=== PATIENT | female | born 1995 | race Caucasian/White ===

== ENCOUNTER 2018-11-08 06:42 | Inpatient (IN) | payer OTHER, SELFPAY ==
[2018-11-08 06:50] VITALS: BMI 33.1
[2018-11-08] MEDS: Lactated Ringers 1,000 ML 50 ML IV ×3 (07:40→20:28)
[2018-11-08] MEDS: Oxytocin 30 units/NS 500 ml 30 UNITS/500 ML IV.SOLN IV (07:55)
[2018-11-08 08:44] LABS: Hematocrit 36.3 % (37-47); Hemoglobin 11.9 g/dl (12.0-15.0); Mean Corp Hgb Conc 32.8 g/gl (32-36); Mean Corpuscular Volume 91.4 fL (81-99); Mean Platelet Vol. 10.9 fl (6.2-12.0); Platelet Count 252 K/mm3 (150-450); RBC Distribution Width CV 13.9 % (11.6-14.6); Red Blood Count 3.97 M/mm3 (4.2-5.4); White Blood Count 9.7 K/mm3 (4.4-11.0)
[2018-11-08 08:48] LABS: Scan Indicated on CBC? Y/N NO
--- NOTE | 2018-11-08 10:48 | PCM.HP.OB ---
History Date of Admission: 11/08/18 Final NEO: 10/31/18 Gestational age: 41 Weeks and 1 Days History of this : This is a 23 year-old, 1 para 0 female admitted at 41-1/7 weeks gestation for induction of labor. Fractions. She is a good movement. Her has been uncomplicated to date. Allergies No Known Allergies Allergy (Verified 11/08/18 08:00) Home Medications: Home Medications Vits [Prenatabs FA] 1 tablet PO DAILY 11/08/18 Smoking Status: Never smoker Alcohol: None Number of Fetus(es): 1 Heart Tracin bpm, occas variables, moderate variability, some accels TOCO Analysis: mild ctxs q3 min History Past Pregnancies: Past Pregnancies Delivery Date Name GA/Weeks Outcome Route Weight Infant Gender Labor Length Anesthesia Delivery Location Provider FOB Review of Systems Constitutional: Denies: Chills, Fever Cardiovascular: Denies: Chest Pain Respiratory: Denies: Cough Gastrointestinal: Denies: Abdominal Pain Genitourinary: Denies: Dysuria Skin: Denies: Rash Neurological: Denies: Blurred vision, Slurred speech Physical Exam General: Alert, Cooperative, No apparent distress Cardiovascular: Regular rate Lungs: Normal air movement Abdomen: Soft, Non Tender, Non-Distended, Appropriate for Gestational Age Extremities:: Other - edema1+ PAD TUFTER: Normal external genitalia Estimated gestational size: Appropriate for gestational size Presentation: Cephalic Cervix Dilation (cm): 2.5 Station: -2 Effacement (%): 70 Assessment/Plan This is a 23 year-old, 1 para 0 at 41-1/7 weeks gestation for induction of labor due to being 41 weeks. Response and alternatives to induction of labor had been discussed with patient, her questions were answered to her satisfaction she desires to proceed. Proceed with Pitocin and artificial rupture membranes. May have epidural, nitrous oxide or Nubain as needed for pain control..
--- NOTE | 2018-11-08 10:52 | HP.PCM_ITS ---
History Date of Admission: 11/08/18 Final NEO: 10/31/18 Gestational age: 41 Weeks and 1 Days History of this : This is a 23 year-old, 1 para 0 female admitted at 41-1/7 weeks gestation for induction of labor. Fractions. She is a good movement. H er has been uncomplicated to date. Allergies No Known Allergies Allergy (Verified 11/08/18 08:00) Home Medications: Home Medications Vits [Prenatabs FA] 1 tablet PO DAILY 11/08/18 Smoking Status: Never smoker Alcohol: None Number of Fetus(es): 1 Heart Tracin bpm, occas variables, moderate variability, some accels TOCO Analysis: mild ctxs q3 min History Past Pregnancies: Past Pregnancies Delivery Date Name GA/Weeks Outcome Route Weight Gender Labor Length Anesthesia Delivery Location Provider FOB Review of Systems Constitutional: Denies: Chills, Fever Cardiovascular: Denies: Chest Pain Respiratory: Denies: Cough Gastrointestinal: Denies: Abdominal Pain Genitourinary: Denies: Dysuria Skin: Denies: Rash Neurological: Denies: Blurred vision, Slurred speech Physical Exam General: Alert, Cooperative, No apparent distress Cardiovascular: Regular rate Lungs: Normal air movement Abdomen: Soft, Non Tender, Non-Distended, Appropriate for Gestational Age Extremities:: Other - edema1+ [employer]: Normal external genitalia Estimated gestational size: Appropriate for gestational size Presentation: Cephalic Cervix Dilation (cm): 2.5 Station: -2 Effacement (%): 70 Assessment/Plan This is a 23 year-old, 1 para 0 at 41-1/7 weeks gestation for induction of labor due to being 41 weeks. Response and alternatives to induction of labor had been discussed with patient, her questions were answered to her satisfaction she desires to proceed. Proceed with Pitocin and artificial rupture membranes. May have epidural, nitrous oxide or Nubain as needed for pain control..
--- NOTE | 2018-11-08 10:59 | PN.OBGYN_ITS ---
Subjective: Well controlled, average lochia, working on breast-feeding. - Physical Exam General: Alert, Cooperative, No apparent distress Weight: 77 kg Body Mass Index (BMI) 33.1 Laboratory Tests Past 24 Hrs 11/08/18 11/08/18 07:40 07:40 WBC 9.7 RBC 3.97 L Hgb 11.9 L Hct 36.3 L MCV 91.4 MCH 30.0 MCHC 32.8 RDW 13.9 RDW Differential 46.0 H Plt Count 252 MPV 10.9 Blood Type Pending Antibody Screen Pending Medical Necessity - Tobacco Use Smoking Status: Never smoker Assessment/Plan day #1 status post spontaneous vaginal delivery. Patient is breast- feeding and doing well. Teen care for her in the . Likely discharge home tomorrow.
--- NOTE | 2018-11-08 11:02 | DCINST_ITS ---
Discharge Diet: No Restrictions Discharge Activity: Return to Normal Activity, May not drive while taking narcotic pain medications., May Shower May resume sexual activity in: 4-6 weeks Additional Activity Instructions:: Nothing in the vagina for 4-6 weeks. You may return to work/school in 6 weeks. Call your doctor if your incision/area has: Continuous Slow Oozing, Sudden Increased Bleeding, Increased Pain/ Swelling, Increased Redness, Foul Smelling Discharge Additional Instructions: If you experience any of the following, contact your healthcare provider. * Bleeding that soaks a pad every hour for 2 hours * Fever 100.4 or higher * Unrelieved incision or abdominal pain * Swelling, redness, discharge or bleeding from your incision or episiotomy site * Your incision begins to separate * Problems urinating (including inability to urinate or burning while urinating). * Visual changes * Severe headache * Flu-like symptoms * Pain or redness in one of both of your breasts * Pain, warmth, tenderness or swelling in your legs, especially the calf area * Frequent nausea and vomiting * Symptoms of depression or anxiety If you experience any of the following, call 911 or go to the nearest Emergency Room. * Chest pain * Problems breathing * Seizure activity * Partial or complete paralysis of a body part, slurred speech, weakness or drooping of the face, or a sudden inability to walk or hold your balance Allergies/Adverse Reactions: Allergies No Known Allergies Allergy (Verified 11/08/18 08:00) Medications to take at Discharge Ibuprofen [Motrin] 800 mg PO TID PRN PRN #60 tablet 11/08/18 Vits [Prenatabs FA ] 1 tablet PO DAILY 11/08/18 The following prescriptions were given: Ibuprofen [Motrin] 800 mg PO TID PRN PRN #60 tablet PRN Reason: Pain Please Follow Up With: Loretta Huffman MD - [phone] When: Call to make an appointment with your provider's office in 6 weeks. Make an appointment in 1-2 weeks as well. Primary Care Physician: Care Physician,No Primary [Primary Care Provider] - Test Results: Test results from this visit will be discussed in further detail at your follow- up appointment, if applicable. Proposed Discharge Date: 11/09/18
--- NOTE | 2018-11-08 11:03 | PCM.HP.OB ---
History Date of Admission: 11/08/18 Final NEO: 10/31/18 Gestational age: 41 Weeks and 1 Days Allergies No Known Allergies Allergy (Verified 11/08/18 08:00) Home Medications: Home Medications Ibuprofen [Motrin] 800 mg PO TID PRN PRN #60 tablet 11/08/18 Vits [Prenatabs FA ] 1 tablet PO DAILY 11/08/18 Smoking Status: Never smoker Alcohol: None History Past Pregnancies: Past Pregnancies Delivery Date Name GA/Weeks Outcome Route Weight Gender Labor Length Anesthesia Delivery Location Provider FOB Assessment/Plan disregard this duplicate entry
[2018-11-08] MEDS: Mag Hydrox/Al Hydrox/Simeth 30 ML UDC PO (14:03)
[2018-11-08] MEDS: Nalbuphine 10 MG/ML Ampul IV (14:06)
[2018-11-08] MEDS: fentaNYL-bupivacaine (epidural) 100 ML BAG EPIDURAL ×2 (15:20→20:40)
[2018-11-08] MEDS: Ondansetron 4 MG/2 ML Vial IV (21:00)
[2018-11-08] MEDS: Oxytocin 30 units/NS 500 ml 30 UNITS/500 ML IV.SOLN 334 UNITS IV (21:37)
[2018-11-08] MEDS: Oxytocin 30 units/NS 500 ml 30 UNITS/500 ML IV.SOLN 167 UNITS IV (22:07)
--- NOTE | 2018-11-08 22:20 | PCM.OB.VAG ---
Vaginal Delivery Maternal Presentation: Medically Indicated Induction Method of Induction: Pitocin, Amniotomy Medical Reason for Induction: - - 41 weeks Amniotic Membrane Rupture Type: Artificial Amniotic Fluid Description: Clear Final NEO: 10/31/18 Gestational age: 41 Weeks and 1 Days Date of Procedure: 11/08/18 Pre-Operative Diagnosis: Labor, maternal exhaustion Post-Operative Diagnosis: Same Surgery/ Procedure Performed: Vacuum Assisted Vaginal Delivery - Outlet Type of Anesthesia: Epidural Description of Procedure: Patient was complete and pushing. She was comfortable with her epidural. Stein catheter is in place. Position was EVER. Patient had been pushing for 2-1/2 hours with good effort. At times she was pushing every other contraction because of variable decelerations and prolonged decelerations. Then she would have times of minimal variability. She was becoming fatigued. There was mild It. With pushing the station was plus 4 out of 5 station and labia approximately 2 cm. I discussed with her option of trial of vacuum-assisted vaginal delivery versus continuing second stage. [place] it was reasonable given how long the patient had been pushing and the progress she made to attempt a vacuum at this point. Patient and her partner agreed. The vacuum was placed on the flexion point and vacuum was created to 550 mmHg. I pulled with 2 contractions until the head was almost . On the third contraction of the head was the vacuum suction broke and there is a gentle pop off. She then pushed with another contraction and delivered the baby EVER. The shoulders were delivered in less than 30 seconds with maternal pushing efforts and modified Edi position and minimal downward traction. The remainder the delivered quickly and easily. The was placed on the maternal abdomen was attended to by the waiting nursing staff. Cord clamping was delayed. The cord was clamped and cut and the continued to be attended to by the nursing staff. Cord gases were collected and the placenta was delivered with gentle cord traction and fundal massage. The right vaginal sulcus laceration and perineal body were reapproximated with 2-0 Vicryl suture. The remainder the vaginal laceration and second-degree perineal laceration were reapproximated with 3-0 Vicryl Rapide suture. A rectal exam was done before the laceration was repaired and at the end of the repair. The cervix was intact. Sponge and needle counts were correct. The patient and the tolerated the procedure well. Presentation: EVER Placental Delivery Description: Spontaneous Placenta Disposition: [facility] Cord Vessel Description: 3 Vessels Cord Gases drawn per routine: ABG, VBG Cord Entanglement: None Drain: Stein to straight drain Estimated Blood Loss: 500 A gender: Female (1 minute): 8 (5 minute): 9 Laceration: Vaginal Extension/lac - Right vaginal sulcus laceration, 2nd degree - Perineal Medications given after delivery: IV Pitocin Complications: None
--- NOTE | 2018-11-08 22:27 | OP.PCM_ITS ---
Vaginal Delivery Maternal Presentation: Medically Indicated Induction Method of Induction: Pitocin, Amniotomy Medical Reason for Induction: - - 41 weeks Amniotic Membrane Rupture Type: Artificial Amniotic Fluid Description: Clear Final NEO: 10/31/18 Gestational age: 41 Weeks and 1 Days Date of Procedure: 11/08/18 Pre-Operative Diagnosis: Labor, maternal exhaustion Post-Operative Diagnosis: Same Surgery/ Procedure Performed: Vacuum Assisted Vaginal Delivery - Outlet Type of Anesthesia: Epidural Description of Procedure: Patient was complete and pushing. She was comfortable with her epidural. Stein catheter is in place. Position was EVER. Patient had been pushing for 2-1/2 hours with good effort. At times she was pushing every other contraction because of variable decelerations and prolonged decelerations. Then she would have times of minimal variability. She was becoming fatigued. There was mild It. With pushing the station was plus 4 out of 5 station and labia approximately 2 cm. I discussed with her option of trial of vacuum- assisted vaginal delivery versus continuing second stage. [place] it was reasonable given how long the patient had been pushing and the progress she made to attempt a vacuum at this point. Patient and her partner agreed. The vacuum was placed on the flexion point and vacuum was created to 550 mmHg. I pulled with 2 contractions until the head was almost . On the third contraction of the head was the vacuum suction broke and there is a gentle pop off. She then pushed with another contraction and delivered the baby EVER. The shoulders were delivered in less than 30 seconds with maternal pushing efforts and modified Edi position and minimal downward traction. The remainder the delivered quickly and easily. The infant was placed on the maternal abdomen was attended to by the waiting nursing staff. Cord clamping was delayed. The cord was clamped and cut and the continued to be attended to by the nursing staff. Cord gases were collected and the placenta was delivered with gentle cord traction and fundal massage. The right vaginal sulcus laceration and perineal body were reapproximated with 2-0 Vicryl suture. The remainder the vaginal laceration and second-degree perineal laceration were reapproximated with 3-0 Vicryl Rapide suture. A rectal exam was done before the laceration was repaired and at the end of the repair. The cervix was intact. Sponge and needle counts were correct. The patient and the tolerated the procedure well. Presentation: EVER Placental Delivery Description: Spontaneous Placenta Disposition: [facility] Cord Vessel Description: 3 Vessels Cord Gases drawn per routine: ABG, VBG Cord Entanglement: None Drain: Stein to straight drain Estimated Blood Loss: 500 Infant A gender: Female (1 minute): 8 (5 minute): 9 Laceration: Vaginal Extension/lac - Right vaginal sulcus laceration, 2nd degree - Perineal Medications given after delivery: IV Pitocin Complications: None
[2018-11-08] MEDS: 0.9% Saline Lock 10 ML Syringe IV (23:07)
[2018-11-09] MEDS: Naproxen 250 MG Tablet PO ×2 (00:41→09:43)
[2018-11-09 04:37] VITALS: BP 107/53; PULSE 70; RESP 18; TEMP 36.4
[2018-11-09 06:34] LABS: Hematocrit 27.6 % (37-47); Hemoglobin 9.1 g/dl (12.0-15.0); Mean Corpuscular Volume 91.1 fL (81-99); Mean Platelet Vol. 10.9 fl (6.2-12.0); Platelet Count 245 K/mm3 (150-450); RBC Distribution Width CV 13.9 % (11.6-14.6); RBC Distribution Width SD 46.3 fl (35.1-43.9); Red Blood Count 3.03 M/mm3 (4.2-5.4); White Blood Count 16.3 K/mm3 (4.4-11.0)
[2018-11-09 07:11] LABS: Scan Indicated on CBC? Y/N NO
--- NOTE | 2018-11-09 08:25 | PCM.PN.OB ---
Subjective: pain well controlled, average lochia, no N/V - Physical Exam General: Alert, Cooperative, No apparent distress Vital Signs Temp Pulse Resp BP 97.5 F L 70 18 107/53 L 11/09/18 04:37 11/09/18 04:37 11/09/18 04:37 11/09/18 04:37 Weight: 77 kg Body Mass Index (BMI) 33.1 Intake and Output for Last 24 Hours 11/07/18 11/08/18 11/09/18 23:59 23:59 23:59 Intake Total 3224 / 3224 Output Total 800 / 800 150 / 150 Balance 2424 / 2424 -150 / -150 Laboratory Tests Past 24 Hrs 11/08/18 11/08/18 11/09/18 07:40 07:40 04:31 WBC 9.7 16.3 H RBC 3.97 L 3.03 L Hgb 11.9 L 9.1 L Hct 36.3 L 27.6 L MCV 91.4 91.1 MCH 30.0 30.0 MCHC 32.8 33.0 RDW 13.9 13.9 RDW Differential 46.0 H 46.3 H Plt Count 252 245 MPV 10.9 10.9 Blood Type A POSITIVE Antibody Screen NEGATIVE Medical Necessity - Tobacco Use Smoking Status: Never smoker Assessment/Plan PPD#1 doing well working on ambulate likely home tomorrow
[2018-11-09 09:20] VITALS: BP 104/51; PULSE 85; RESP 16; TEMP 36.2; O2SAT 97
[2018-11-09] MEDS: Senna/Docusate Sodium 1 Tablet PO (09:43)
[2018-11-09 12:00] VITALS: BP 98/64; PULSE 87; RESP 16; TEMP 36.5; O2SAT 97
[2018-11-09 16:00] VITALS: BP 100/49; PULSE 83; RESP 16; TEMP 36.5; O2SAT 97
[2018-11-09 20:54] VITALS: BP 117/67; PULSE 94; RESP 16; TEMP 36.4; O2SAT 96
[2018-11-10 00:57] VITALS: BP 101/54; PULSE 97; RESP 18; TEMP 36.4; O2SAT 96
[2018-11-10] MEDS: Naproxen 250 MG Tablet PO (01:02)
[2018-11-10 07:30] VITALS: BP 95/53; PULSE 83; RESP 16; TEMP 36.1; O2SAT 98
[2018-11-10] MEDS: Acetaminophen 500 MG Tablet 1000 MG PO (07:33)
--- NOTE | 2018-11-10 08:19 | PCM.PN.OB ---
Subjective: pain well controlled, average lochia - Physical Exam General: Alert, Cooperative, No apparent distress Vital Signs Temp Pulse Resp BP Pulse Ox 97.5 F L 97 18 101/54 L 96 11/10/18 00:57 11/10/18 00:57 11/10/18 00:57 11/10/18 00:57 11/10/18 00:57 Oxygen Delivery Method Room Air Weight: 77 kg Body Mass Index (BMI) 33.1 Intake and Output for Last 24 Hours 11/08/18 11/09/18 11/10/18 23:59 23:59 23:59 Intake Total 3224 / 3224 Output Total 800 / 800 850 / 850 Balance 2424 / 2424 -850 / -850 Medical Necessity - Tobacco Use Smoking Status: Never smoker Assessment/Plan POD#2 doing well ready for d/c and doing well
[2018-11-10 10:03] VITALS: BP 95/53; PULSE 83; RESP 16; TEMP 36.1; O2SAT 98
--- NOTE | 2018-11-10 12:17 | NURSING ---
Patient did not want Mirena- would like to wait for 6 week visit
== END 2018-11-10 10:25 | disposition home or self-care (01) | DRG 807 ==
PROVIDERS: Obstetrics & Gynecology; Admitting Provider Obstetrics & Gynecology; Referring Provider Obstetrics & Gynecology; Visit Provider Obstetrics & Gynecology
DX: O48.0 Post-term pregnancy (principal); O75.81 Maternal exhaustion complicating labor and delivery; O76 Abnormality in fetal heart rate and rhythm complicating labor and delivery; O70.1 Second degree perineal laceration during delivery; Z3A.41 41 weeks gestation of pregnancy; Z37.0 Single live birth
CPT/HCPCS: 59025; 59050; 85027; 86850; 86900; 99218; J7120; A4216; G0378; J2405

== ENCOUNTER 2018-11-21 14:14 | Emergency (ER) | payer OTHER, SELFPAY ==
[2018-11-21 14:15] VITALS: BP 145/70; PULSE 74; RESP 26; TEMP 37; O2SAT 100
[2018-11-21 14:43] VITALS: BP 145/70; PULSE 76; RESP 18; TEMP 37; O2SAT 98
[2018-11-21] MEDS: morphine 8 MG/ML Syringe 6 MG SC (15:41)
[2018-11-21 15:48] VITALS: BP 138/52; PULSE 83; RESP 16; TEMP 36.9; O2SAT 98
--- NOTE | 2018-11-21 15:54 | ED.RN ---
THIS RN AT BEDSIDE WHILE DR CORTEZ USED SILVER NITRATE STICK ON WOUND SITE. PT TOLERATED FAIRLY WELL. EMOTIONAL SUPPORT PROVIDED. SPOUSE AT BEDSIDE. DENIES QUESTIONS OR NEEDS AFTER PROCEDURE.
--- NOTE | 2018-11-21 15:59 | ED.RN ---
SHELLACKER CALLED FOR PATIENT. SPOKE WITH RUBEN, THIS RN ASKED ABOUT NURSING AFTER MORPHINE INJECTION. PER RUBEN IT IS SAFE LONG PATIENT IS NOT DROWSY AND CAN FUNCTION PER NORMAL. STATES THE SAME IF PATIENT IS PRESCRIBED NORCO OR PERCOCET. PATIENT EDUCATED. DENIES QUESTIONS. GIVEN BROCHURE WITH WP/ PHONE NUMBER.
--- NOTE | 2018-11-21 16:07 | ED.VISSUMM ---
- ER Visit Summary Date of Service: 11/21/18 Chief Complaint: Vaginal pain History of Present Illness: The patient is a 23 F presenting for evaluation secondary to vaginal pain. Patient is a 2 weeks from a vaginal delivery. During delivery the patient did have a second-degree vaginal tear that was repaired with sutures. Patient reports that she was doing well in her period, was not really having any issues. Patient states that today she was seated, at rest, and had a sudden onset of severe vaginal pain. She states that it is sharp and shooting worse with any sort of movement or palpation. She denies that it is associated with any sort of urinary signs or symptoms. She denies any flank pain or fevers. She denies any change in the quality or quantity of her vaginal discharge. Physical Examination: Physical exam unremarkable except for exam. External exam is normal. Vaginal exam shows evidence of sutures on the right vaginal wall that are visible, but no evidence of wound dehiscence. Inferior vaginal wall shows evidence of healed laceration with a small amount of granulation tissue that is exquisitely tender to palpation. Test Results: None indicated Emergency Department Course and Treatment: Patient presented secondary to vaginal pain. She has evidence of granulation tissue that is exquisitely tender. I discussed this with SHIPPING AND RECEIVING, the recommended cautery with silver nitrate. This was performed, patient was given morphine, and repeat evaluation of the patient at 4 PM showed that she had some symptomatic improvement. SHIPPING AND RECEIVING recommended warm soaks in the bath and follow-up next week. Patient was comfortable with this and she was discharged. Disposition: Discharge Impression: 1. vaginal pain 2. Chemical cautery This note was generated with [employer] dictation software. It may contain incorrect words, spelling, and punctuation that were not noted in review of the chart prior to signing ED Disposition - Plan for ED Patient: Disposition: Home or Assisted Living Chief Complaint: Wound Check Diagnosis: Vaginal pain Instructions: ED Wound Check Post Op No Infec Referrals: Loretta Huffman MD [STAFF PHYSICIAN] - 3-5 Days
--- NOTE | 2018-11-21 16:11 | ED.DCSUM_ITS ---
- ER Visit Summary Date of Service: 11/21/18 Chief Complaint: Vaginal pain History of Present Illness: The patient is a 23 F presenting for evaluation secondary to vaginal pain. Patient is a 2 weeks from a vaginal delivery. During delivery the patient did have a second-degree vaginal tear that was repaired with sutures. Patient reports that she was doing well in her period, was not really having any issues. Patient states that today she was seated, at rest, and had a sudden onset of severe vaginal pain. She states that it is sharp and shooting worse with any sort of movement or palpation. She denies that it is associated with any sort of urinary signs or symptoms. She denies any flank pain or fevers. She denies any change in the quality or quantity of her vaginal discharge. Physical Examination: Physical exam unremarkable except for exam. External exam is normal. Vaginal exam shows evidence of sutures on the right vaginal wall that are visible, but no evidence of wound dehiscence. Inferior vaginal wall shows evidence of healed laceration with a small amount of granulation tissue that is exquisitely tender to palpation. Test Results: None indicated Emergency Department Course and Treatment: Patient presented secondary to vaginal pain. She has evidence of granulation tissue that is exquisitely tender. I discussed this with INSURANCE CHECKER, the recommended cautery with silver nitrate. This was performed, patient was given morphine, and repeat evaluation of the patient at 4 PM showed that she had some symptomatic improvement. INSURANCE CHECKER recommended warm soaks in the bath and follow-up next week. Patient was comfortable with this and she was discharged. Disposition: Discharge Impression: 1. vaginal pain 2. Chemical cautery This note was generated with [employer] dictation software. It may contain incorrect words, spelling, and punctuation that were not noted in review of the chart prior to signing ED Disposition - Plan for ED Patient: Disposition: Home or Assisted Living Chief Complaint: Wound Check Diagnosis: Vaginal pain Instructions: ED Wound Check Post Op No Infec Referrals: Loretta Huffman MD [STAFF PHYSICIAN] - 3-5 Days
[2018-11-21 16:13] VITALS: BP 113/69; PULSE 72; RESP 16; O2SAT 100
== END 2018-11-21 16:28 | disposition home or self-care (01) ==
PROVIDERS: Emergency Provider Emergency Medicine
DX: O90.89 Other complications of the puerperium, not elsewhere classified (principal); R10.2 Pelvic and perineal pain; L92.9 Granulomatous disorder of the skin and subcutaneous tissue, unspecified
CPT/HCPCS: 96372; 99283